=== PATIENT | female | born 1945 | race Caucasian/White ===

== ENCOUNTER → 2019-11-08 08:54 | Outpatient (BNVA) | payer MEDICARE, BC, SELFPAY | PROVIDERS: Family Provider Nurse Practitioner Family; PCP Nurse Practitioner Family; Referring Provider Family Medicine; Visit Provider Nurse Practitioner Family | DX: J32.9 Chronic sinusitis, unspecified (principal); B96.89 Other specified bacterial agents as the cause of diseases classified elsewhere; E03.9 Hypothyroidism, unspecified | CPT/HCPCS: 84443 ==

== ENCOUNTER → 2020-04-18 12:10 | Outpatient (BNVA) | payer MEDICARE, BC, SELFPAY | PROVIDERS: Family Provider Nurse Practitioner Family; PCP Nurse Practitioner Family; Visit Provider Family Medicine | DX: E03.9 Hypothyroidism, unspecified (principal); F32.9 Major depressive disorder, single episode, unspecified; I10 Essential (primary) hypertension; H61.23 Impacted cerumen, bilateral | CPT/HCPCS: 80053; 80061; 84443; 85025 ==

== ENCOUNTER 2022-02-20 09:22 | Outpatient (CLI) | payer MEDICARE, BC, SELFPAY ==
[2022-02-20] MEDS: iohexol 350 mg/mL 100 mL Btl PO (10:09)
[2022-02-20] MEDS: iohexol 350 mg/mL 100 mL Btl IV (10:43)
--- NOTE | 2022-02-20 11:30 | CT_ITS ---
WS: [id number] CT ABDOMEN AND PELVIS WITH CONTRAST HISTORY: R10.9 - Unspecified abdominal pain TECHNIQUE: Imaging performed of the abdomen and pelvis with IV contrast. Single phase imaging of the abdomen. Coronal and sagittal reformats are submitted. All CT scans at [facility] use at [address] one of these dose optimization techniques: automated exposure control; mA and/or kV adjustment per patient size (includes targeted exams where dose is matched to clinical indication); or iterative re construction. IV CONTRAST: Omnipaque 350; 95 mL IV. Oral contrast: Yes. DLP: 1274.13 mGy.cm COMPARISON: None available. Lower thorax: Lung bases are clear. Heart is normal size. Small hiatal hernia. Liver/biliary system: Normal size liver. Focal hepatic steatosis to the falciform ligament. No bile d uct dilatation or mass. Normally enhancing portal vein. Gallbladder: Normal. No gallstones or wall thickening. No pericholecystic fluid. Pancreas: Normal size pancreas and pancreatic duct. No adjacent inflammation. Spleen: Normal size spleen. No mass or infarct. Adrenal glands: Normal. Right kidney: No mass or obstruction. Extrarenal pelvis. Left kidney: No mass or obstruction. Extrarenal pelvis. Aorta: Mild atherosclerosis with no aneurysm. Mild atherosclerosis proximal SMA and celiac axis. Athe rosclerotic plaque in the proximal LEFT renal artery. No ischemic changes. Lymphadenopathy: None. Free fluid: None. GI tract: Normally distended stomach and small bowel. No obstruction. The appendix has been surgicall y removed. Moderate diffuse constipation with tortuosity of the colon. Numerous diverticula in the di stal colon. No acute diverticulitis. Abdominal wall: Fat containing umbilical hernia. Pelvis: Artifact through the pelvis. A small amount of free fluid would be difficult to exclude. The uterus is atrophic and ovaries are atrophic as expected. No pelvic mass or adenopathy. 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 Bilateral hip arthroplasties. CT/CT abdomen pelvis w con* [id number] IMPRESSION: 1. No acute abdominal or pelvic abnormalities are identified. 2. Mild within the aorta and proximal SMA and celiac axis. 3. Small hiatal hernia. 4. Prior appendectomy. 5. Mild distal colon diverticulosis burden. No evidence for acute diverticulit is. 6. Moderate diffuse constipation.
[2022-02-20 11:47] LABS: Blood Urea Nitrogen 10 mg/dL (8-23)
== END 2022-02-20 09:23 | disposition home or self-care (01) ==
PROVIDERS: Family Provider Nurse Practitioner Family; PCP Nurse Practitioner Family; Visit Provider Surgery
DX: R10.9 Unspecified abdominal pain (principal); K44.9 Diaphragmatic hernia without obstruction or gangrene; K59.09 Other constipation
CPT/HCPCS: 74177; 82565; 84520

== ENCOUNTER 2022-02-26 07:01 | Day surgery (SDC) | payer MEDICARE, BC, SELFPAY ==
[2022-02-24 13:29] VITALS: BMI 28.7
[2022-02-26 07:15] VITALS: BP 152/95; PULSE 86; RESP 16; TEMP 36.1; O2SAT 98
--- NOTE | 2022-02-26 07:35 | ANES.PREANE2 ---
Pre-Anesthetic Assessment Height/Weight: Height 1.73 m Weight 85.729 kg Temp Pulse Resp BP Pulse Ox 97.0 F L 86 16 152/95 98 02/26/22 07:15 02/26/22 07:15 02/26/22 07:15 02/26/22 07:15 02/26/22 07:15 Preop Diagnosis: diagnostic Operation Date: 02/26/22 08:30 Proposed Procedures p Colonoscopy 92432/z80.0(Not Applicable) - Fabian Kilpatrick MD Familial anesthetic complications: None Was Beta Matthias taken within 24 hours: N/A Was Clonidine taken within 24 hours: N/A Social No alcohol and No tobacco Exam alert, oriented x 3, clear to auscultation bilaterally and regular rate & rhythm Airway Submandibular: within normal limits Cervical ROM: within normal limits Mallampati: Class I Dentition: full History/ROS No significant complaints Pulmonary None reported CV/HEM Hypertension None reported Hepatic None reported GI Gastroesophageal Reflux Disease Symptomatic on empty stomach on occassion Metabolic Thyroid Disease Musc/skel Osteoarthritis/DJD Neuropsych Depression Anesthetic Plan ASA status: 2 Anesthesia: Anesthesia Evaluation and General Other: I discussed with the patient risks, goals, and benefits of MAC and general anesthesia. We discussed spectrum of MAC anesthesia including conversion to general as well as possibility of recall of intraoperative stimuli including discomfort/pain. Patient agrees to proceed with MAC. Risk of > 500 ml blood loss (7ml/kg in children): No Medications/Allergies Home Medications Medication Instructions Recorded Confirmed Last Taken Type cholecalciferol (vitamin D3) 25 1,000 unit PO DAILY cap 11/08/19 02/24/22 02/23/22 History mcg (1,000 unit) capsule diclofenac sodium 75 mg 75 mg PO BID 11/08/19 02/24/22 02/25/22 History tablet,delayed release levothyroxine 100 mcg tablet 100 mcg PO DAILY #90 tab 04/30/20 02/24/22 02/25/22 Rx citalopram 40 mg tablet See Rx Instructions .ROUTE 10/28/21 02/24/22 02/25/22 Rx .COMPLEX #90 tab lisinopril 10 mg tablet 20 mg PO DAILY 02/24/22 02/24/22 02/25/22 History Allergies Allergy/AdvReac Type Severity Reaction Status Date / Time rosuvastatin [From Crestor] Allergy Unknown Verified 01/21/22 09:38 [facility] Anesthesia Medical History Arthritis Depression Essential hypertension GERD (gastroesophageal reflux disease) Hyperlipemia Hypothyroid Surgical History History of appendectomy 2020 History of cholecystectomy History of colonoscopy with polypectomy 5+ History of esophagogastroduodenoscopy (EGD) History of total left hip replacement 2009 History of total right hip replacement 2000 Family History Brother Cancer BROTHER FROM COLON CANCER Mother Arthritis Social History Smoking and tobacco status: never smoked Lives independently: Yes Household members: spouse Marital status: Data Anesthesia Cardiac Studies: No Data to Display
[2022-02-26] MEDS: sodium chloride 0.9% 1,000 ML 30 ML IV (07:58)
--- NOTE | 2022-02-26 07:58 | P.HP_ITS ---
Same Day Surgery H&P Indication for Procedure/HPI DATE OF PROCEDURE: February 26, 2022 CHIEF COMPLAINT/INDICATIONFOR SURGICAL PROCEDURE: colonoscopy PREOP DIAGNOSIS: diagnostic PLANNED PROCEDURE: Operation Date: 02/26/22 08:30 Proposed Procedures p Colonoscopy 66820/z80.0(Not Applicable) - Fabian Kilpatrick MD Medications/Allergies* Home Medications Medication Instructions Recorded Confirmed Type cholecalciferol (vitamin D3) 25 1,000 unit PO DAILY cap 11/08/19 02/24/22 History mcg (1,000 unit) capsule diclofenac sodium 75 mg 75 mg PO BID 11/08/19 02/24/22 History tablet,delayed release lisinopril 10 mg tablet 20 mg PO DAILY 02/24/22 02/24/22 History Allergies/Adverse Reactions Allergy/AdvReac Type Severity Reaction Status Date / Time rosuvastatin [From Crestor] Allergy Unknown Verified 01/21/22 09:38 Current Medications: Generic Name Dose Route Start Last Admin Trade Name Freq PRN Reason Stop Dose Admin Sodium Chloride 1,000 mls @ 30 mls/hr 02/26/22 07:15 02/26/22 07:58 Sodium Chloride 0.9% IV 02/27/22 07:14 30 mls/hr .Q24H LEXI Administration Pertinent History/Comorbid Conditions* Medical History (Updated 01/21/22 @ 13:08 by Fabian Kilpatrick MD) Arthritis Depression Essential hypertension GERD (gastroesophageal reflux disease) Hyperlipemia Hypothyroid Surgical History (Updated 01/21/22 @ 13:08 by Fabian Kilpatrick MD) History of appendectomy 2019 History of cholecystectomy History of colonoscopy with polypectomy 5+ History of esophagogastroduodenoscopy (EGD) History of total left hip replacement 2009 History of total right hip replacement 2000 Family History (Updated 11/08/19 @ 07:43 by Rhiannon Ash LPN) Brother Mother Arthritis Mother Cancer Brother BROTHER FROM COLON CANCER Social History Smoking and tobacco status: never smoked Lives independently: Yes Household members: spouse Marital status: Pertinent Exam Findings alert, oriented x 3 and regular rate & rhythm Recommendations Surgery/Procedure today Coding Level of Care Code Acute 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
[2022-02-26 08:54] VITALS: BP 97/59; PULSE 68; RESP 18; TEMP 36.3; O2SAT 92
[2022-02-26 09:05] VITALS: BP 113/72; PULSE 72; RESP 18; TEMP 36.6; O2SAT 97
--- NOTE | 2022-02-26 13:07 | ANE.PACU2 ---
Inpatient post-anesthesia follow up: Airway intact: Yes Vital signs: Temperature 97.8 F Pulse Rate 72 Respiratory Rate 18 Blood Pressure 113/72 Pulse Oximetry 97 Oxygen Delivery Me thod Room Air Oxygen Flow Rate Fraction of Inspir ed Oxygen Hydration adequate: Yes Nausea and vomiting: No Pain level: 2 Mental status: Baseline
== END 2022-02-26 09:17 | disposition home or self-care (01) ==
PROVIDERS: PCP Nurse Practitioner Family; Visit Provider Surgery
PROC: 0DJD8ZZ Inspection of Lower Intestinal Tract, Via Natural or Artificial Opening Endoscopic (ICD-10-PCS; CPT 45378; principal; 2022-02-26 08:30)
DX: K57.30 Diverticulosis of large intestine without perforation or abscess without bleeding (principal); K64.8 Other hemorrhoids; Z80.0 Family history of malignant neoplasm of digestive organs; M19.90 Unspecified osteoarthritis, unspecified site; F32.9 Major depressive disorder, single episode, unspecified; I10 Essential (primary) hypertension; K21.9 Gastro-esophageal reflux disease without esophagitis; E03.9 Hypothyroidism, unspecified; E78.5 Hyperlipidemia, unspecified
CPT/HCPCS: 45378; J2704; J7030